=== PATIENT | male | born 1955 | race Caucasian/White ===

== ENCOUNTER 2019-12-11 15:19 | Emergency (ER) | payer OTHER, BC, SELFPAY ==
--- NOTE | ~2019-12-11 | XR_ITS ---
XR shoulder LT min 2V 12/11/2019 16:00 Indication: Left shoulder pain Procedure: 4 views left shoulder Comparison: No prior studies for comparison. Findings: No fracture, subluxation or dislocation. There are left clavicular osteotomy changes. No si gnificant soft tissue abnormality. No radiopaque foreign bodies. Impression: 1: No acute fracture. Reviewed, dictated and finalized at location A. Impression: 1: No acute fracture.
[2019-12-11 15:22] VITALS: BP 155/57; PULSE 73; RESP 16; TEMP 36.2; O2SAT 96
--- NOTE | 2019-12-11 15:50 | PC.NURSE ---
Patient to radiology then to room
--- NOTE | 2019-12-11 16:19 | ED.UPPEXIN ---
HPI - Extremity Injury (Upper) General Chief Complaint: Extremity Injury, Upper Stated Complaint: fall/lt shoulder pain Time Seen by Provider: 12/11/19 15:51 Source: patient Mode of arrival: ambulatory Limitations: no limitations History of Present Illness HPI narrative: This is a 64-year-old male that presents the emergency department for left shoulder pain after a fall today. Reports he was holding a ladder in his right arm. Reports he tripped and fell forward. Reports he tried to catch himself with his left arm. Reports since he has had left shoulder pain. Reports decreased range of motion due to pain. Denies hitting his head, loss of consciousness, other injuries, numbness or weakness. Related Data Home Medications Medication Instructions Recorded Confirmed aspirin [Adult Low Dose Aspirin] DAILY 12/11/19 atorvastatin HS 12/11/19 carvedilol 50 DAILY 12/11/19 olmesartan DAILY 12/11/19 sertraline mg DAILY 12/11/19 Allergies Allergy/AdvReac Type Severity Reaction Status Date / Time No Known Allergies Allergy Verified 12/11/19 15:27 Review of Systems Review of Systems: Narrative: CONSTITUTIONAL: Denies fever MUSCULOSKELETAL: Reports joint pain, and myalgia. NEUROLOGIC: Denies numbness, or weakness. All systems reviewed & are unremarkable except as noted in HPI and below PMFSH Past Medical History Medical History (Updated 12/11/19 @ 16:25 by Cecilia Zheng PA-C) History of hyperlipidemia History of hypertension Social History Social History Gender identity (if verbalized by the patient): Male Exam Narrative: Exam Narrative: GENERAL: Well-appearing, well-nourished, and in no acute distress. HEAD: Normocephalic, atraumatic. EYES: EOMI. CHEST: Clear to auscultation. No respiratory distress. No wheezes rales or rhonchi HEART: Regular rate and rhythm. No murmur heard. Normal peripheral pulses. EXTREMITIES: Normal range of motion, except decreased active range of motion in the left shoulder. No edema or obvious deformity. Normal sensation. Normal radial pulses SKIN: Warm, dry, no rash. NEURO: No focal deficits. Alert and oriented x3. PSYCH: Normal mood and affect Course Vital Signs Vital signs: Vital Signs Temperature 97.1 F L 12/11/19 15:22 Pulse Rate 73 08/28/20 15:22 Respiratory Rate 16 12/11/19 15:22 Blood Pressure 155/57 H 12/11/19 15:22 Pulse Oximetry 96 12/11/19 15:22 Temperature 97.1 F L 12/11/19 15:22 Pulse Rate 73 12/11/19 15:22 Respiratory Rate 16 12/11/19 15:22 Blood Pressure 155/57 H 12/11/19 15:22 Pulse Oximetry 96 12/11/19 15:22 MDM - Extremity Injury (Upper) MDM Narrative Medical decision making narrative: Patient presents to the emergency department after a fall today with left shoulder pain. Denies any other injuries. Left shoulder x-rays without acute findings. Patient placed in a sling for comfort. Instructed to rest, ice and take [id number] pain medication as needed. Was instructed to come out of the sling and do range of motion exercises so he does not get stiff. He is to follow-up with his orthopedics doctor as needed. He was given warnings to return to the ER Imaging Data Radiologist's impression: ITS Impressions Shoulder X-Ray 12/11/19 16:03 Impression: 1: No acute fracture. Critical Care Time Critical Care Time Critical Care Time: No Discharge Plan Discharge Clinical Impression: Acute pain of left shoulder Patient Disposition: Home, Self-Care Condition: Stable Instructions: Shoulder Pain (ED) Additional Instructions: Return to the emergency department if you experience fever, redness and swelling of your arm, numbness, or any other symptoms that are concerning to you Rest. Ice to the area. [id number] pain medication as needed. You may wear sling as needed for comfort. Make sure you come out of the sling and do range of motion exercises so you do not get stiff Fo
[2019-12-11 16:28] VITALS: BP 143/63; PULSE 64; RESP 18; TEMP 36.8; O2SAT 95
== END 2019-12-11 17:00 | disposition home or self-care (01) ==
PROVIDERS: Emergency Provider Emergency Medicine; PCP Internal Medicine
DX: M25.512 Pain in left shoulder (principal); Z79.82 Long term (current) use of aspirin; E78.5 Hyperlipidemia, unspecified; I10 Essential (primary) hypertension; W01.0XXA Fall on same level from slipping, tripping and stumbling without subsequent striking against object, initial encounter
CPT/HCPCS: 73030; 99283; A4565